=== PATIENT | female | born 1960 ===

== ENCOUNTER 2017-01-08 19:01 | Emergency (ER) | payer MEDICAID, OTHER ==
[2017-01-08 19:02] VITALS: BMI 40.7
[2017-01-08 19:16] VITALS: TEMP 98.7
--- NOTE | 2017-01-08 20:07 | ED PDOC ---
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 sx are worsening since. she denies any other sig pmh. nkda. Past Medical History - Infectious Disease Hx of Infectious Diseases: None - Tetanus Immunization Tetanus Immunization: Unknown - Reproductive Menopause: Yes - Past Medical History Past Medical History: Unable to Obtain - Psychiatric Hx Depression: No Hx Emotional Abuse: No Hx Physical Abuse: No Hx Substance Use: No - Past Surgical History Past Surgical History: Unable to Obtain - Surgical History Hx Tubal Ligation: Yes - Suicidal Assessment Feels Threatened In Home Enviroment: No Family/Social History Family/Social History: Other (nc) Smoking Status: Current Some Days Smoker Hx Alcohol Use: Yes Frequency of alcohol use: Socially Hx Substance Use: No Allergies/Home Meds Allergies/Adverse Reactions: Allergies No Known Allergies Allergy (Verified 02/27/13 23:10) Review of Systems - Review of Systems Constitutional: absent: Fevers Eyes: Vision Changes, Photophobia, Eye Pain ENT: absent: Epistaxis Respiratory: absent: SOB Cardiovascular: absent: Chest Pain Neurological: absent: Focal Weakness, Facial Droop Physical Exam Vital Signs Temp Pulse Resp BP Pulse Ox 01/08/17 19:10 98.7 F 82 16 155/89 H 99 - Systems Exam Head: Present: Atraumatic Pupils: Present: PERRL Extroacular Muscles: Present: EOMI Conjunctiva: No: Injected Mouth: Present: Moist Mucous Membranes Neurological: Present: GCS=15, CN II-XII Intact, Motor Func Grossly Intact, Normal Sensory Function Psychiatric: Present: Alert, Oriented x 3 Medical Decision Making ED Course and Treatment: the pt reports complete resolution of pain after application of tetracaine drops IOP 18 OD 17 OS diffuse uptake of fluorescein bilaterally unable to perform visual acuity due to degree of impairment 01/08/17 20:[address] Gonzalez- likely chemical keratitis. rec abx ointment and follow up in his office tomorrow morning 9AM. Disposition/Present on Arrival - Present on Arrival Any Indicators Present on Arrival: No History of DVT/PE: No History of Uncontrolled Diabetes: No Urinary Catheter: No History of Decub. Ulcer: No History Surgical Site Infection Following: None - Disposition Have Diagnosis and Disposition been Completed?: Yes Diagnosis: Chemical keratitis Disposition: HOME/ ROUTINE Disposition Time: 20:05 Patient Problems: Current Active Problems Problem Status Onset Chemical keratitis Acute Condition: STABLE Discharge Instructions (ExitCare): Keratitis (ED) Additional Instructions: Please follow up with the eye physician: go to his office tomorrow at 9AM to be seen. It is very important that you follow up as directed. Use ointment as directed 4 times daily. Return to the ER for any worsening symptoms or for any other concerns. Prescriptions: Tobramycin 0.3% [Tobrex] 1 unit OP QID #1 tube Referrals: Eusebio Gonzalez MD [Staff Provider] - Follow up with primary
[2017-01-08 20:28] VITALS: BP 149/81; PULSE 80; RESP 18; O2SAT 100
== END 2017-01-08 20:25 | disposition home or self-care (01) ==
LOC: ED 19:01
DX: H16.8 Other keratitis (principal); F17.210 Nicotine dependence, cigarettes, uncomplicated

== ENCOUNTER 2017-01-08 21:54 | Emergency (ER) | payer MEDICAID, OTHER ==
[2017-01-08 21:54] VITALS: BMI 40.7
[2017-01-08 22:01] VITALS: TEMP 98.2
--- NOTE | 2017-01-08 23:23 | ED PDOC ---
Arrival/HPI - General Historian: Patient - History of Present Illness Time/Duration: 4-6 hours Symptom Onset: Sudden Symptom Course: Unchanged Severity Level: Mild Activities at Onset: Light - General Chief Complaint: Eye Problem Time Seen by Provider: 01/08/17 21:55 - History of Present Illness Narrative History of Present Illness (Text): 01/08/17 23:24 Lilian Thompson is a 56 year old female who presents to the emergency department complaining of eye pain s/p chemical eye injury earlier today. Patient was evaluated for similar complaints, and was discharged home on Tobrex. Informs of minimal relief after using the Tobrex eye drop. No blurry or other vision changes. Denies any other somatic complaints. (Christian TAPIA,Gosia Burleson) Past Medical History - Provider Review Nursing Documentation Reviewed: Yes - Infectious Disease Hx of Infectious Diseases: None - Tetanus Immunization Tetanus Immunization: Unknown - Reproductive Menopause: Yes - Past Medical History Past Medical History: Unable to Obtain - Psychiatric Hx Depression: No Hx Emotional Abuse: No Hx Physical Abuse: No Hx Substance Use: No - Past Surgical History Past Surgical History: Unable to Obtain - Surgical History Hx Tubal Ligation: Yes - Anesthesia Hx Anesthesia: Yes Hx Anesthesia Reactions: No Hx Malignant Hyperthermia: No - Suicidal Assessment Feels Threatened In Home Enviroment: No Family/Social History - Physician Review Nursing Documentation Reviewed: Yes Family/Social History: No Known Family HX Smoking Status: Current Some Days Smoker Hx Alcohol Use: Yes Hx Substance Use: No Allergies/Home Meds Allergies/Adverse Reactions: Allergies No Known Allergies Allergy (Verified 01/08/17 22:01) Review of Systems - Physician Review All systems were reviewed & negative as marked: Yes - Review of Systems Constitutional: Normal Eyes: Eye Pain. absent: Vision Changes, Photophobia Respiratory: Normal. absent: SOB, Cough Cardiovascular: Normal. absent: Chest Pain, Palpitations Gastrointestinal: Normal. absent: Abdominal Pain, Diarrhea, Nausea, Vomiting Genitourinary Female: Normal Neurological: Normal. absent: Headache, Dizziness Psychiatric: Normal Physical Exam Vital Signs Reviewed: Yes Temperature: Afebrile Blood Pressure: Normal Pulse: Regular Respiratory Rate: Normal Appearance: Positive for: Well-Appearing, Non-Toxic, Comfortable Pain Distress: Moderate Mental Status: Positive for: Alert and Oriented X 3 - Systems Exam Head: Present: Atraumatic, Normocephalic Pupils: Present: PERRL Extroacular Muscles: Present: EOMI Conjunctiva: Present: Injected, Other (tearful ) Mouth: Present: Moist Mucous Membranes Neck: Present: Normal Range of Motion Respiratory/Chest: Present: Clear to Auscultation, Good Air Exchange. No: Respiratory Distress, Accessory Muscle Use Cardiovascular: Present: Regular Rate and Rhythm, Normal S1, S2. No: Murmurs Abdomen: Present: Normal Bowel Sounds. No: Tenderness, Distention, Peritoneal Signs Upper Extremity: Present: Normal Inspection. No: Cyanosis, Edema Lower Extremity: Present: Normal Inspection. No: Edema Neurological: Present: GCS=15, CN II-XII Intact, Speech Normal Skin: Present: Warm, Dry, Normal Color. No: Rashes Psychiatric: Present: Alert, Oriented x 3, Normal Insight, Normal Concentration Medical Decision Making ED Course and Treatment: 01/08/17 23:28 Impression: A 56 year old female complaining of eye pain following chemical injury earlier today. Plan: -- tetracaine -- Reassess and disposition -- Percocet 2 tabs po / zofran 4 mg odt / toradol 60 mg IM Progress Notes: 01/08/17 23:29 Patient is continuing to c/o b/l eye pain, she is in moderate painful distress. Tetracain 1 drop instilled to both eyes. As per patient she has an appointment with the agricultural lender in the morning at 9 AM. Considering the patient's history and presentation will continue to observe in the emergency room and discharge this morning to her agricultural lender for further evaluation. Case endorsed to Dr. Martin, pending re-evaluation. (Gosia Gonzales PA-C) 0700 pt dc. awaiting ride from . she required tetracaine drops every 1 to 2 hours throughout the night and rested quietly in between. she has an appt w ophtho at 9am. (Matt Martin) - Medication Orders Current Medication Orders: Discontinued Medications Diphenhydramine HCl (Benadryl) 50 mg PO STAT STA Stop: 01/09/17 02:36 Last Admin: 01/09/17 03:22 Dose: 50 mg Ketorolac Tromethamine (Toradol) 60 mg IM STAT STA Stop: 01/09/17 00:08 Last Admin: 01/09/17 01:05 Dose: 60 mg Re-Assess: [facility] Pain Assessment Document 01/09/17 02:05 SS (Rec: 01/09/17 07:00 [id number] Pain Reassessment Is this a pain reassessment? Yes Sleep Is patient sleeping during reassessment? Yes Ondansetron HCl (Zofran Odt) 4 mg PO STAT STA Stop: 01/09/17 00:08 Last Admin: 01/09/17 01:06 Dose: 4 mg Oxycodone/Acetaminophen (Percocet 5/325 Mg Tab) 2 tab PO STAT STA Stop: 01/09/17 00:08 Last Admin: 01/09/17 00:53 Dose: 2 tab Re-Assess: [facility] Pain Assessment Document 01/09/17 01:53 SS (Rec: 01/09/17 07:[address] [id number] Pain Reassessment Is this a pain reassessment? Yes Sleep Is patient sleeping during reassessment? Yes - PA / RESIDENTIAL BUILDER / Resident Statement MD/DO has reviewed & agrees with the documentation as recorded. Disposition/Present on Arrival - Present on Arrival Any Indicators Present on Arrival: No History of DVT/PE: No History of Uncontrolled Diabetes: No Urinary Catheter: No History of Decub. Ulcer: No History Surgical Site Infection Following: None - Disposition Have Diagnosis and Disposition been Completed?: Yes Disposition Time: 02:00 (Case endorsed to Dr. Martin pending re-evalaution and d/c to her ophthalmology appointment. ) Patient Plan: Discharge (will observe in the ER, then D/C to her agricultural lender for further care) - Disposition Diagnosis: Chemical keratitis Disposition: HOME/ ROUTINE Condition: STABLE Discharge Instructions (ExitCare): Keratitis (ED) Additional Instructions: Follow up with the customer advisor specialist at 9am today. Return to the ER for any worsening symptoms or for any other concerns. Referrals: Eusebio Gonzalez MD [Staff Provider] - Follow up with primary
[2017-01-09] MEDS ORDERED: Oxycodone/Acetaminophen 5/325 mg Tab PO STA (00:07)
[2017-01-09 05:20] VITALS: RESP 14
[2017-01-09 06:36] VITALS: BP 114/69; PULSE 62; O2SAT 97
== END 2017-01-09 08:37 | disposition home or self-care (01) ==
LOC: ED 21:54
DX: H16.8 Other keratitis (principal)
CPT/HCPCS: 96372; 99284; J1885

== ENCOUNTER 2017-07-18 04:13 | Emergency (ER) | payer MEDICAID, OTHER ==
[2017-07-18 04:14] VITALS: BMI 40.7
[2017-07-18 04:19] VITALS: RESP 17
[2017-07-18] MEDS ORDERED: DiphenhydrAMINE 50 mg/ml Inj IVP STA (04:23)
--- NOTE | 2017-07-18 04:32 | ED PDOC ---
Arrival/HPI - General Chief Complaint: Headache Time Seen by Provider: 07/18/17 04:16 Historian: Patient - History of Present Illness Narrative History of Present Illness (Text): 07/18/17 04:29 A 56 year old female, presents to the emergency department with a complaint of a headache since she woke up this morning. The patient states that she experiences these headache every few months "since I was a little girl". The patient states that whenever she gets these headaches, she has to turn off the lights and lay down. She also reports left eye pain and decreased vision. The patient denies fevers, chills, dizziness, chest pain, shortness of breath, dyspnea on exertion, cough, abdominal pain, nausea, vomiting, diarrhea, back pain, neck pain, urinary/bowel changes, or any other complaint. Time/Duration: Other (This Morning) Symptom Onset: Sudden Symptom Course: Unchanged Activities at Onset: Rest Context: Home Past Medical History - Provider Review Nursing Documentation Reviewed: Yes - Infectious Disease Hx of Infectious Diseases: None - Tetanus Immunization Tetanus Immunization: Unknown - Past Medical History Past Medical History: Unable to Obtain - Neurological Hx Headaches: Yes - Psychiatric Hx Depression: No Hx Emotional Abuse: No Hx Physical Abuse: No Hx Substance Use: No - Past Surgical History Past Surgical History: Unable to Obtain - Surgical History Hx Tubal Ligation: Yes - Anesthesia Hx Anesthesia: Yes Hx Anesthesia Reactions: No Hx Malignant Hyperthermia: No - Suicidal Assessment Feels Threatened In Home Enviroment: No Family/Social History - Physician Review Nursing Documentation Reviewed: Yes Family/Social History: Other (Non-contributory.) Smoking Status: Current Some Days Smoker Hx Alcohol Use: Yes Hx Substance Use: No Allergies/Home Meds Allergies/Adverse Reactions: Allergies No Known Allergies Allergy (Verified 07/18/17 04:28) Home Medications: Home Meds Medication Instructions Recorded Confirmed No Known Home Med 07/18/17 07/18/17 Review of Systems - Review of Systems Constitutional: absent: Fevers Respiratory: absent: SOB Cardiovascular: absent: Chest Pain Gastrointestinal: absent: Abdominal Pain, Diarrhea, Nausea, Vomiting Neurological: Headache Physical Exam Vital Signs Reviewed: Yes Vital Signs Temp Pulse Resp BP Pulse Ox 07/18/17 06:07 90 17 120/72 97 07/18/17 04:18 98.4 F 87 17 128/84 98 Appearance: Positive for: Well-Appearing, Non-Toxic Pain Distress: None Mental Status: Positive for: Alert and Oriented X 3 - Systems Exam Extroacular Muscles: Present: EOMI Mouth: Present: Moist Mucous Membranes Respiratory/Chest: Present: Clear to Auscultation, Good Air Exchange, Accessory Muscle Use. No: Respiratory Distress Cardiovascular: Present: Regular Rate and Rhythm Abdomen: No: Tenderness, Distention Upper Extremity: Present: NORMAL PULSES Lower Extremity: Present: NORMAL PULSES Neurological: Present: GCS=15, Motor Func Grossly Intact, Normal Sensory Function Skin: Present: Warm, Dry Psychiatric: Present: Alert, Oriented x 3 Medical Decision Making ED Course and Treatment: 07/18/17 05:49: Stained cornea with fluorescein and there is uptake covering about 50% of the cornea of the left eye. The intraocular pressure was 14. 07/18/17 06:[address] Bob- thinks likely corneal erosion- rec abx eye drops and artificial tears. - Medication Orders Current Medication Orders: Discontinued Medications Diphenhydramine HCl (Benadryl) 50 mg IVP STAT STA Stop: 07/18/17 04:24 Last Admin: 07/18/17 04:40 Dose: 50 mg IVP Administration Document 07/18/17 04:40 IT (Rec: 07/18/17 04:40 IT [id number]) Charges for Administration # of IVP Administrations 1 Metoclopramide HCl (Reglan) 10 mg IVP STAT STA Stop: 07/18/17 04:24 Last Admin: 07/18/17 04:41 Dose: 10 mg IVP Administration Document 07/18/17 04:41 IT (Rec: 07/18/17 04:41 IT [id number]) Charges for Administration # of IVP Administrations 1 Tetracaine HCl (Tetracaine 0.5% Ophth Soln) 2 drop OS STAT STA Stop: 07/18/17 05:39 Last Admin: 07/18/17 05:43 Dose: 2 drop Comments: Administered by Dr. Martin - [place] Statement The provider has reviewed the documentation as recorded by the Annibsunil Wilson Provider Scribe Attestation: All medical record entries made by the Scribe were at my direction and personally dictated by me. I have reviewed the chart and agree that the record accurately reflects my personal performance of the history, physical exam, medical decision making, and the department course for this patient. I have also personally directed, reviewed, and agree with the discharge instructions and disposition. Disposition/Present on Arrival - Present on Arrival Any Indicators Present on Arrival: No History of DVT/PE: No History of Uncontrolled Diabetes: No Urinary Catheter: No History of Decub. Ulcer: No History Surgical Site Infection Following: None - Disposition Have Diagnosis and Disposition been Completed?: Yes Diagnosis: Corneal erosion of left eye Condition: STABLE Forms: [employer] (Norwegian)
[2017-07-18] MEDS ORDERED: Tetracaine 0.5% Ophth 2 ML BOTTLE OS STA (05:38)
[2017-07-18 06:08] VITALS: BP 120/72; PULSE 90
[2017-07-18 06:48] VITALS: TEMP 98; O2SAT 98
== END 2017-07-18 06:48 | disposition home or self-care (01) ==
LOC: ED 04:13
DX: H16.002 Unspecified corneal ulcer, left eye (principal)
CPT/HCPCS: 96374; 96375; 99285; J1200; J1885; J2765